=== PATIENT | female | born 1980 | race Caucasian/White ===

== ENCOUNTER 2018-01-16 13:20 | Emergency (ER) | payer MEDICARE, OTHER ==
[~2018-01-16] VITALS: Ht 152.4 cm; Wt 60.0 kg
[~2018-01-16 13:20] MED LIST: VALP250
[2018-01-16 13:21] VITALS: BP 153/102; PULSE 97; RESP 22; TEMP 98.4; O2SAT 98
[2018-01-16] MEDS ORDERED: VIST50CA PO (14:41)
[2018-01-16] MEDS ORDERED: SERO300T PO (14:41)
[2018-01-16] MEDS ORDERED: LITH300T PO (14:41)
[2018-01-16] MEDS ORDERED: RESP: ALBUTEROL 2.5 MG/IPRATROPIUM 0.5 MG NEB (SCH) INH ONE (15:15)
[2018-01-16] MEDS ORDERED: PRED20 PO (15:35)
[2018-01-16] MEDS ORDERED: VENTAER INH (15:35)
[2018-01-16] MEDS ORDERED: BACT800T5 PO (15:35)
--- NOTE | 2018-01-16 15:41 | PD ---
HPI Chief Complaint: Cold / Flu Symptoms Time Seen by Provider: 15:00 Travel History International Travel<30 days: No Contact w/Intl Traveler<30days: No Traveled to known affect area: No History of Present Illness HPI 37-year-old female presents emergency department with 1 week history of upper respiratory symptoms which have now settled in her chest. She states she has increased cough which is sometimes productive as well as shortness of breath and wheezing. Patient denies significant fever, sore throat, ear pain, or sinus congestion. She has been hoarse however. He denies nausea, vomiting, or heartburn. Patient is allergic to codeine. Patient is a smoker. 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) Medical other: Yes (PTSD, MENINGITIS) Seizures: Yes Tetanus Vaccination: Unknown Influenza Vaccination: No ?: Not LMP: 01/11/18 : 2 Para: 2 Tubal Ligation: Yes Past Surgical History Appendectomy: Yes Cholecystectomy: Yes Tonsillectomy: Yes Social History Alcohol Use: No Tobacco Use: Yes (1 PPD) Substance Use: No Allergies-Medications (Allergen,Severity, Reaction): Coded Allergies: codeine (Unverified Allergy, Intermediate, 01/16/18) Reported Meds & Prescriptions Reported Meds & Active Scripts Active Ventolin Hfa 18 GM Inh (Albuterol Sulfate) 90 Mcg/Act Aer 2 Puff INH Q4-6H PRN Prednisone 20 Mg Tab 20 Mg PO DAILY 7 Days Bactrim DS (Sulfamethoxazole-Trimethoprim) 800-160 Mg Tab 1 Tab PO BID Reported Seroquel (Quetiapine Fumarate) 300 Mg Tab 300 Mg PO HS Vistaril (Hydroxyzine Pamoate) 50 Mg Cap 50 Mg PO BID [place] Carbonate ER ([place] Carbonate) 300 Mg Tab 300 Mg PO BID Review of Systems Except as stated in HPI: all other systems reviewed are Neg General / Constitutional: No: Fever, Chills Eyes: No: Visual changes HENT: Positive: Rhinitis, Rhinorrhea, Congestion, No: Headaches, Vertigo, Lightheadedness, Sore Throat, Nosebleed, Neck Stiffness, Neck Pain, Dental Difficulties, Earache Cardiovascular: No: Chest Pain or Discomfort Respiratory: Positive: Cough, Shortness of Breath, Wheezing, No: Sneezing, Orthopnea, Hemoptysis, Night Sweats, Pleuritic Pain Gastrointestinal: No: Nausea, Vomiting, Diarrhea, Abdominal Pain Genitourinary: No: Dysuria Musculoskeletal: No: Pain Skin: No Rash Neurologic: No: Weakness Psychiatric: No: Depression Endocrine: No: Polydipsia Hematologic/Lymphatic: No: Easy Bruising Physical Exam Narrative GENERAL: Patient appears in no acute distress SKIN: Warm and dry. Normal color. Normal turgor. No rash HEAD: Atraumatic. Normocephalic. EYES: Pupils equal and round. No scleral icterus. No injection or drainage. ENT: No nasal bleeding or discharge. Mucous membranes pink and moist. Sinuses are nontender with palpation and percussion bilaterally. TMs are clear bilaterally. Posterior pharynx shows some mild erythema in the posterior pharynx but no significant swelling of the tonsils. There is no exudate or postnasal drip. Airway is patent. NECK: Trachea midline. Supple and nontender CARDIOVASCULAR: Regular rate and rhythm. RESPIRATORY: No accessory muscle use. Mild diffuse wheezes throughout r to auscultation. Breath sounds equal bilaterally. GASTROINTESTINAL: Abdomen soft, non-tender, nondistended. Hepatic and splenic margins not palpable. MUSCULOSKELETAL: Extremities without clubbing, cyanosis, or edema. No obvious deformities. NEUROLOGICAL: Awake and alert. No obvious cranial nerve deficits. Motor grossly within normal limits. Five out of 5 muscle strength in the arms and legs. Normal speech. PSYCHIATRIC: Appropriate mood and affect; insight and judgment normal. Data Data Last Documented VS Vital Signs Date Time Temp Pulse Resp B/P (MAP) Pulse Ox O2 Delivery O2 Flow Rate FiO2 01/16/18 13:21 98.4 97 22 153/102 (119) 98 Orders Orders Albuterol-Ipratropium Neb (Duoneb Neb) (01/16/18 15:15) [facility] Medical Decision Making Medical Screen Exam Complete: Yes Emergency Medical Condition: Yes Differential Diagnosis Upper respiratory infection. Sinusitis. Bronchitis. Wheezing. Narrative Course Patient is medically stable at time of exam. Chest x-ray is not felt warranted at this time. Patient is given a DuoNeb with improved symptoms. Patient was treated with Bactrim DS twice daily 10 days per Patient is given prednisone 20 mg daily for 7 days. Patient is given albuterol metered-dose inhaler 2 puffs every 4-6 hours as needed cough and wheeze. Patient is given a work note. Patient is encouraged to quit smoking as soon as possible. Diagnosis Primary Impression: Acute wheezy bronchitis Referrals: Primary Care Physician Patient Instructions: General Instructions, How to Stop Smoking (DC), Wheezing (ED) Departure Forms: Work Release Enter return to work date: Jan 18, 2018 Additional Instructions: Chest x-ray is not felt warranted at this time. Patient is given a DuoNeb with improved symptoms. Patient was treated with Bactrim DS twice daily 10 days per Patient is given prednisone 20 mg daily for 7 days. Patient is given albuterol metered-dose inhaler 2 puffs every 4-6 hours as needed cough and wheeze. Patient is given a work note. Patient is encouraged to quit smoking as soon as possible. Med/Other Pt SpecificInfo: Prescription(s) given Scripts Albuterol 18 GM Inh (Ventolin Hfa 18 GM Inh) 90 Mcg/Act Aer 2 PUFF INH Q4-6H Y for SHORTNESS OF BREATH, #1 INHALER 0 Refills Prov: Ulises Mackey MD 01/16/18 Prednisone (Prednisone) 20 Mg Tab 20 MG PO DAILY for 7 Days, #7 TAB 0 Refills Prov: Ulises Mackey MD 01/16/18 Sulfamethoxazole-Trimethoprim (Bactrim DS) 800-160 Mg Tab 1 TAB PO BID for Infection, #20 TAB 0 Refills Prov: Ulises Mackey MD 01/16/18 Disposition: 01 DISCHARGE HOME Condition: Stable Jong Kincaid Jan 16, 2018 15:40
== END 2018-01-16 15:52 | disposition home or self-care (01) ==
LOC: NEPA 13:20
DX: J20.9 Acute bronchitis, unspecified (principal); F43.10 Post-traumatic stress disorder, unspecified; R56.9 Unspecified convulsions; F17.200 Nicotine dependence, unspecified, uncomplicated; Z88.5 Allergy status to narcotic agent; Z79.899 Other long term (current) drug therapy; Z79.51 Long term (current) use of inhaled steroids
CPT/HCPCS: 94664; 99283

== ENCOUNTER 2018-03-18 08:42 | Emergency (ER) | payer SELFPAY ==
[~2018-03-18 08:42] MED LIST changes: +BACT800T5 PO; +LITH300T PO; +PRED20 PO; +SERO300T PO; -VALP250; +VENTAER INH; +VIST50CA PO
[2018-03-18 08:51] VITALS: BP 140/95; PULSE 77; RESP 16; TEMP 98.4; O2SAT 100
--- NOTE | 2018-03-18 09:19 | HHI.FPPN ---
Jong Kincaid Mar 18, 2018 09:18
[2018-03-18] MEDS ORDERED: IBUP-232 PO (09:22)
[2018-03-18] MEDS ORDERED: AMOX875T PO (09:22)
[2018-03-18] MEDS ORDERED: FLUT1SPR5 EACH NARE (09:22)
--- NOTE | 2018-03-18 09:29 | PD ---
HPI Chief Complaint: Oral / Dental Pain or Problem Time Seen by Provider: 09:11 Travel History International Travel<30 days: No Contact w/Intl Traveler<30days: No Traveled to known affect area: No History of Present Illness HPI 37-year-old female presents emergency department with upper respiratory symptoms over the past week as well as dental pain in the left lower jaw. Patient states she has had trouble with this tooth in the past. Is the second molar on the left lower jaw. Patient also has complaints of sinus congestion, headache, postnasal drip and sore throat. She denies chest congestion or wheezing. She has no nausea vomiting or diarrhea. Symptoms have been getting worse over the past week. She has tried [id number] meds without improvement. She recently quit smoking, but has no known seasonal allergies. She does not want any kind of narcotics or codeine. PFSH Past Medical History Medical History: Denies Significant Hx Diminished Hearing: Yes (L EAR SINCE INCIDENT) Immunizations Current: No Seizures: Yes Tetanus Vaccination: < 5 Years ?: Not : 2 Para: 2 Tubal Ligation: Yes Past Surgical History Appendectomy: Yes Cholecystectomy: Yes Tonsillectomy: Yes Social History Alcohol Use: No Tobacco Use: Yes (1 PPD) Substance Use: No Allergies-Medications (Allergen,Severity, Reaction): Coded Allergies: codeine (Unverified Allergy, Intermediate, 01/16/18) Uncoded Allergies: narcotics (Adverse Reaction, Severe, 03/18/18) recovering Reported Meds & Prescriptions Reported Meds & Active Scripts Active Ibuprofen 600 Mg Tab 600 Mg PO Q6H PRN Flonase Nasal [place] (Fluticasone Nasal [place]) 50 Mcg/Act [place] 100 Mcg EACH NARE BID Amoxicillin 875 Mg Tab 875 Mg PO BID 10 Days Prednisone 20 Mg Tab 20 Mg PO DAILY 7 Days Reported Seroquel (Quetiapine Fumarate) 300 Mg Tab 300 Mg PO HS Vistaril (Hydroxyzine Pamoate) 50 Mg Cap 50 Mg PO BID [place] Carbonate ER ([place] Carbonate) 300 Mg Tab 300 Mg PO BID Review of Systems Except as stated in HPI: all other systems reviewed are Neg General / Constitutional: No: Fever, Chills Eyes: No: Visual changes HENT: Positive: Headaches, Sore Throat, Rhinitis, Rhinorrhea, Dental Difficulties, Earache, No: Vertigo, Lightheadedness, Nosebleed, Neck Stiffness, Neck Pain, Masses, Gingival Bleeding, Ear Discharge Cardiovascular: No: Chest Pain or Discomfort Respiratory: Positive: Cough, No: Shortness of Breath Gastrointestinal: No: Abdominal Pain Genitourinary: No: Dysuria Musculoskeletal: No: Pain Skin: No Rash Neurologic: No: Weakness Psychiatric: No: Depression Endocrine: No: Polydipsia Hematologic/Lymphatic: No: Easy Bruising Physical Exam Narrative GENERAL: No obvious distress. SKIN: Warm and dry. Normal color. Normal turgor. No rash HEAD: Atraumatic. Normocephalic. Moderate sinus tenderness mainly in the maxillary sinus. EYES: Pupils equal and round. No scleral icterus. No injection or drainage. ENT: No nasal bleeding or discharge. Mucous membranes pink and moist. TMs are dull with no injection. Pharynx is cobblestoned with injection and postnasal drip noted. Patient has tenderness with palpation of the left lower second molar without significant abscess formation at this time. Airways patent. NECK: Trachea midline. Supple and nontender without significant lymphadenopathy. CARDIOVASCULAR: Regular rate and rhythm. RESPIRATORY: No accessory muscle use. Clear to auscultation. Breath sounds equal bilaterally. MUSCULOSKELETAL: Extremities without clubbing, cyanosis, or edema. No obvious deformities. NEUROLOGICAL: Awake and alert. No obvious cranial nerve deficits. Motor grossly within normal limits. Five out of 5 muscle strength in the arms and legs. Normal speech. PSYCHIATRIC: Appropriate mood and affect; insight and judgment normal. Data Data Last Documented VS Vital Signs Date Time Temp Pulse Resp B/P (MAP) Pulse Ox O2 Delivery O2 Flow Rate FiO2 03/18/18 08:51 98.4 77 16 140/95 (110) 100 MDM Medical Decision Making Medical Screen Exam Complete: Yes Emergency Medical Condition: Yes Differential Diagnosis Upper respiratory infection. Sinusitis. Dental pain. Narrative Course Patient is treated with amoxicillin 875 twice daily 10 days. Patient started on Flonase nasal spray 2 sprays each nostril daily. Patient is given ibuprofen 600 mg up to 4 times daily #40. Patient to follow-up with dentist as soon as possible. Work note was given for today. Patient can follow-up if symptoms worsen as needed Diagnosis Primary Impression: Acute pansinusitis, unspecified Qualified Codes: J01.40 - Acute pansinusitis, unspecified Additional Impression: Dental abscess Referrals: Dentist Patient Instructions: General Instructions Departure Forms: Work Release Enter return to work date: Mar 19, 2018 Additional Instructions: Patient is treated with amoxicillin 875 twice daily 10 days. Patient started on Flonase nasal spray 2 sprays each nostril daily. Patient is given ibuprofen 600 mg up to 4 times daily #40. Patient to follow-up with dentist as soon as possible. Work note was given for today. Patient can follow-up if symptoms worsen as needed Med/Other Pt SpecificInfo: Prescription(s) given Scripts Ibuprofen (Ibuprofen) 600 Mg Tab 600 MG PO Q6H Y for Pain/Inflammation, #40 TAB 0 Refills Prov: Willie Juan MD 03/18/18 Fluticasone Nasal [place] (Flonase Nasal [place]) 50 Mcg/Act [place] 100 MCG EACH NARE BID for Allergies, #1 BOTTLE 0 Refills Prov: Willie Juan MD 03/18/18 Amoxicillin (Amoxicillin) 875 Mg Tab 875 MG PO BID for Infection for 10 Days, #20 TAB 0 Refills Prov: Willie Juan MD 03/18/18 Disposition: 01 DISCHARGE HOME Condition: Stable Jong Kincaid Mar 18, 2018 09:29
[2018-03-19] MEDS ORDERED: MEDR4PAK PO (12:50)
== END 2018-03-18 09:42 | disposition home or self-care (01) ==
LOC: NEPK 08:42
DX: J01.40 Acute pansinusitis, unspecified (principal); K04.7 Periapical abscess without sinus; J02.9 Acute pharyngitis, unspecified; R51 Headache; F17.200 Nicotine dependence, unspecified, uncomplicated
CPT/HCPCS: 99283

== ENCOUNTER 2018-03-19 09:39 | Emergency (ER) | payer SELFPAY ==
[~2018-03-19] VITALS: Ht 152.4 cm; Wt 60.0 kg
[~2018-03-19 09:39] MED LIST changes: +AMOX875T PO; +FLUT1SPR5 EACH NARE; +IBUP-232 PO
[2018-03-19 09:41] VITALS: BP 106/74; PULSE 83; RESP 24; TEMP 98; O2SAT 98
[2018-03-19] MEDS ORDERED: SODIUM CHLORIDE 0.9% FLUSH 10 ML FLUSH IVF PRN (10:15)
[2018-03-19] MEDS ORDERED: methylPREDNISolone SOD SUCC 125 MG/2 ML VIAL IV PUSH ONE (10:15)
[2018-03-19] MEDS ORDERED: RESP: ALBUTEROL 2.5 MG/IPRATROPIUM 0.5 MG NEB (SCH) INH ONE (10:15)
[2018-03-19 10:16] VITALS: O2SAT 100
[2018-03-19] MEDS: RESP: ALBUTEROL 2.5 MG/3 ML NEB (SCH) INH ×2 (10:22→10:25)
--- NOTE | 2018-03-19 12:23 | PD ---
HPI Chief Complaint: Respiratory Symptoms Time Seen by Provider: 10:06 Travel History International Travel<30 days: No Contact w/Intl Traveler<30days: No Traveled to known affect area: No History of Present Illness HPI This is a 37-year-old female with a history of asthma and drug abuse in the past , presents today with shortness of breath and wheezing. Patient states that she believes she may have been exposed to mold or dust at her workplace. Patient denies any headache or dizziness. There are no other complaints at time of examination. Patient states that she was recently seen for a tooth and sinus infection and prescribed amoxicillin. She states that they also prescribed a albuterol inhaler however she did not purchase it because it costs $60 and she did not want to spend that money at this time. 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) Psychiatric: Yes (PTSD) Respiratory: Yes Immunizations Current: No Seizures: Yes Tetanus Vaccination: > 5 Years Influenza Vaccination: No ?: Not LMP: LAST WEEK : 2 Para: 2 Tubal Ligation: Yes Past Surgical History Appendectomy: Yes Cholecystectomy: Yes Tonsillectomy: Yes (T & A) Social History Alcohol Use: No Tobacco Use: Yes (E-CIG) Substance Use: No (recovery CRACK USER) Allergies-Medications (Allergen,Severity, Reaction): Coded Allergies: codeine (Unverified Allergy, Intermediate, 03/19/18) Uncoded Allergies: narcotics (Adverse Reaction, Severe, 03/18/18) recovering Reported Meds & Prescriptions Reported Meds & Active Scripts Active Medrol Dosepak (Methylprednisolone) 4 Mg Dspk 4 Mg PO DIRECTED Per Pharmacist direction Ibuprofen 600 Mg Tab 600 Mg PO Q6H PRN Flonase Nasal [place] (Fluticasone Nasal [place]) 50 Mcg/Act [place] 100 Mcg EACH NARE BID Amoxicillin 875 Mg Tab 875 Mg PO BID 10 Days Reported Seroquel (Quetiapine Fumarate) 300 Mg Tab 300 Mg PO HS Vistaril (Hydroxyzine Pamoate) 50 Mg Cap 50 Mg PO BID [place] Carbonate ER ([place] Carbonate) 300 Mg Tab 300 Mg PO BID Review of Systems Except as stated in HPI: all other systems reviewed are Neg General / Constitutional: No: Fever, Chills HENT: No: Headaches, Lightheadedness Cardiovascular: No: Chest Pain or Discomfort, Palpitations Respiratory: Positive: Shortness of Breath, No: Cough, Wheezing Gastrointestinal: No: Nausea, Vomiting, Abdominal Pain Genitourinary: No: Urgency Musculoskeletal: No: Weakness, Pain Neurologic: No: Weakness, Dizziness, Headache Psychiatric: No: Anxiety, Disorder of Thought Physical Exam Narrative GENERAL: Well-developed well-nourished female in no acute respiratory distress. SKIN: Focused skin assessment warm/dry. HEAD: Atraumatic. Normocephalic. EYES: Pupils equal and round. No scleral icterus. No injection or drainage. ENT: No nasal bleeding or discharge. Mucous membranes pink and moist. NECK: Trachea midline. Supple. CARDIOVASCULAR: Regular rate and rhythm. No murmur appreciated. RESPIRATORY: Bilateral upper and lower airway expiratory wheezes. No rales appreciated. GASTROINTESTINAL: Abdomen soft, non-tender, nondistended. Hepatic and splenic margins not palpable. MUSCULOSKELETAL: No obvious deformities. No clubbing. No cyanosis. No edema. NEUROLOGICAL: Awake and alert. No obvious cranial nerve deficits. Motor grossly within normal limits. Normal speech. PSYCHIATRIC: Appropriate mood and affect; insight and judgment normal. Data Data Last Documented VS Vital Signs Date Time Temp Pulse Resp B/P (MAP) Pulse Ox O2 Delivery O2 Flow Rate FiO2 03/19/18 10:16 100 Room Air 03/19/18 09:41 98.0 83 24 106/74 (85) Orders Orders Iv Access Insert/Monitor (03/19/18 10:06) Ecg Monitoring (03/19/18 10:06) Oximetry (03/19/18 10:06) Oxygen Administration (03/19/18 10:06) Sodium Chloride 0.9% Flush (Ns Flush) (03/19/18 10:15) Methylprednisolone So Succ Inj (Solumedr (03/19/18 10:15) Albuterol-Ipratropium Neb (Duoneb Neb) (03/19/18 10:15) Albuterol Neb (Albuterol Neb) (03/19/18 10:15) MDM Medical Decision Making Medical Screen Exam Complete: Yes Emergency Medical Condition: Yes Differential Diagnosis Reactive airway disease versus asthma exacerbation versus medication reaction Narrative Course 37-year-old female presents today with complaints of shortness of breath and wheezing. Patient states that she works in an environment that has a lot of dust and possible mold. Patient was seen here 2 days ago for sinus infection. She was given a prescription for amoxicillin. She is also given a prescription for a albuterol inhaler. She states she did not fill the inhaler because it cost too much. She has been given 3 nebulizer treatments first with Atrovent. She is also been given 125 mg of Solu-Medrol. She will be discharged with a Medrol Dosepak. She is instructed to follow-up if she develops any worsening symptoms. She also be given the [facility] information for possible outpatient follow-up. Diagnosis Primary Impression: Reactive airway disease Additional Instructions: Return if feeling worse. Med/Other Pt SpecificInfo: Prescription(s) given Scripts Methylprednisolone Dosepak (Medrol Dosepak) 4 Mg Dspk 4 MG PO DIRECTED, #1 DSPK 0 Refills Per Pharmacist direction Prov: Terry Lagos MD 03/19/18 Disposition: 01 DISCHARGE HOME Condition: Stable Terry Lagos MD Mar 19, 2018 12:23
[2018-03-19] MEDS ORDERED: MEDR4PAK PO (12:50)
[2018-03-19 13:08] VITALS: BP 130/78
== END 2018-03-19 13:09 | disposition home or self-care (01) ==
LOC: NEPC 09:39
DX: J45.909 Unspecified asthma, uncomplicated (principal); F31.9 Bipolar disorder, unspecified; F43.10 Post-traumatic stress disorder, unspecified; F17.290 Nicotine dependence, other tobacco product, uncomplicated
CPT/HCPCS: 94640; 94664; 96374; 99284; J2930; J7613

== ENCOUNTER 2018-05-03 07:45 | Emergency (ER) | payer BC ==
[~2018-05-03] VITALS: Ht 149.9 cm; Wt 52.0 kg
[2018-05-03 07:45] VITALS: BP 115/63; PULSE 81; RESP 20; TEMP 98.1; O2SAT 100
[~2018-05-03 07:45] MED LIST changes: -BACT800T5 PO; +MEDR4PAK PO; -PRED20 PO; -VENTAER INH
[2018-05-03] MEDS ORDERED: ALBUAER3 INH (08:10)
[2018-05-03] MEDS ORDERED: predniSONE 20 MG TAB PO ONE (08:30)
[2018-05-03] MEDS ORDERED: RESP: ALBUTEROL 2.5 MG/IPRATROPIUM 0.5 MG NEB (SCH) INH ONE (08:30)
[2018-05-03] MEDS ORDERED: VENTAER INH (08:58)
[2018-05-03] MEDS ORDERED: PRED-503 PO (08:58)
[2018-05-03] MEDS ORDERED: AZIT500T2 PO (08:58)
--- NOTE | 2018-05-03 08:58 | PD ---
HPI Chief Complaint: Respiratory Symptoms Time Seen by Provider: 08:13 Travel History International Travel<30 days: No Contact w/Intl Traveler<30days: No Traveled to known affect area: No History of Present Illness HPI 37-year-old female presents to the emergency department, with history of asthma , complaining of nasal congestion, cough, sore throat, chest tightness 2 days. Had an asthma attack last night and used her albuterol inhaler with minimal relief of symptoms. Reports fever of 101.0 yesterday. Denies vomiting. Denies chest pain. Reports wheezing. Others at work are sick with similar symptoms. Has been taking loratadine for symptom management. Symptoms are mild to moderate in severity. No known aggravating or relieving factors. Needs a refill on her albuterol inhaler. No primary care provider. History of asthma. Allergies to codeine and narcotics. Has no other medical complaints. No other modifying factors or associated signs and symptoms. 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) Psychiatric: Yes (PTSD) Respiratory: Yes Immunizations Current: No Seizures: Yes ?: Not LMP: 04/25/18 : 2 Para: 2 Tubal Ligation: Yes Past Surgical History Appendectomy: Yes Cholecystectomy: Yes Tonsillectomy: Yes (T & A) Social History Alcohol Use: No Tobacco Use: Yes (E-CIG) Substance Use: No (recovery CRACK USER) Allergies-Medications (Allergen,Severity, Reaction): Coded Allergies: codeine (Unverified Allergy, Intermediate, 05/03/18) Uncoded Allergies: narcotics (Adverse Reaction, Intermediate, 05/03/18) recovering Reported Meds & Prescriptions Reported Meds & Active Scripts Active Deltasone (Prednisone) 20 Mg Tab 40 Mg PO DAILY 4 Days start 05/04/2018 Ventolin Hfa 18 GM Inh (Albuterol Sulfate) 90 Mcg/Act Aer 2 Puff INH Q4-6H PRN Azithromycin 500 Mg Tab 500 Mg PO DAILY Reported Proair Hfa 8.5 GM Inh (Albuterol Sulfate) 90 Mcg/Act Aer 1 Puff INH Q4H PRN 108 mcg/actuation Seroquel (Quetiapine Fumarate) 300 Mg Tab 300 Mg PO HS Vistaril (Hydroxyzine Pamoate) 50 Mg Cap 50 Mg PO BID [place] Carbonate ER ([place] Carbonate) 300 Mg Tab 300 Mg PO BID Review of Systems Except as stated in HPI: all other systems reviewed are Neg Physical Exam Narrative GENERAL: Well-nourished, well-developed femur patient, in no acute distress; afebrile, nontoxic-appearing SKIN: Warm and dry. HEAD: Atraumatic. Normocephalic. EYES: Pupils equal and round. No scleral icterus. No injection or drainage. ENT: Mucosa pink and moist. No erythema or exudates. No uvular edema. No uvular , palatal, or tonsillar deviation. Airway patent. Nares without nasal blood, purulent drainage or septal hematoma. EARS: Bilateral pinnae and external canals appear within normal limits. Bilateral tympanic membranes without erythema, dullness or perforation. NECK: Trachea midline. No lymphadenopathy. CARDIOVASCULAR: Regular rate and rhythm. No murmur appreciated. RESPIRATORY: No accessory muscle use. Lungs with Wheezing throughout to auscultation. Breath sounds equal bilaterally. No retractions or tachypnea. No Audible wheezing noted. GASTROINTESTINAL: Abdomen soft, non-tender, nondistended. Hepatic and splenic margins not palpable. Bowel sounds are active 4 quadrants. MUSCULOSKELETAL: No obvious deformities. No clubbing. No cyanosis. No edema. NEUROLOGICAL: Awake and alert. Oriented 3. No obvious cranial nerve deficits. Motor grossly within normal limits. Normal speech. Moves all extremities. 5/5 strength to all extremities. PSYCHIATRIC: Appropriate mood and affect; insight and judgment normal. Data Data Last Documented VS Vital Signs Date Time Temp Pulse Resp B/P (MAP) Pulse Ox O2 Delivery O2 Flow Rate FiO2 05/03/18 07:45 98.1 81 20 115/63 (80) 100 Orders Orders Prednisone (Deltasone) (05/03/18 08:30) Albuterol-Ipratropium Neb (Duoneb Neb) (05/03/18 08:30) Ed Discharge Order (05/03/18 08:58) [facility] Medical Decision Making Medical Screen Exam Complete: Yes Emergency Medical Condition: Yes Medical Record Reviewed: Yes Differential Diagnosis Upper respiratory infection, asthma exacerbation, viral illness, pneumonia Narrative Course 37-year-old female with upper respiratory infection and asthma exacerbation. Patient is afebrile and nontoxic-appearing. Reports fever of 101.0. DuoNeb 1 , Deltasone ordered. Azithromycin, Ventolin inhaler, Deltasone prescribed for home. Instructed patient to follow up with primary care provider. Patient verbalizes understanding and agreement with treatment plan. Patient is medically cleared and stable for discharge. Discussed reasons to return to the emergency department. Patient agrees with treatment plan. The patients vital signs are stable and the patient is stable for outpatient follow-up and treatment. Patient discharged home, stable and in no acute distress. Diagnosis Primary Impression: Asthma exacerbation Qualified Codes: J45.901 - Unspecified asthma with (acute) exacerbation Additional Impression: Upper respiratory infection Qualified Codes: J06.9 - Acute upper respiratory infection, unspecified Referrals: [facility] Primary Care Physician Patient Instructions: Asthma (ED), General Instructions, Upper Respiratory Infection (ED) Departure Forms: Tests/Procedures, Work Release Enter return to work date: May 05, 2018 Additional Instructions: Use Albuterol inhaler as prescribed Take oral steroids as prescribed and complete full course Sugn-[id number] decongestants or antihistamines as directed and as needed for symptom management Drink plenty of fluids to prevent dehydration Use hot air humidifier to decrease cough exacerbation Turn off ceiling fans and sleep with head of bed elevated Avoid triggers such as second hand smoke, dust, known allergens Follow-up with your primary care provider Return to the emergency department immediately with worsening of symptoms Med/Other Pt SpecificInfo: Prescription(s) given Scripts Prednisone (Deltasone) 20 Mg Tab 40 MG PO DAILY for 4 Days, #8 TAB 0 Refills start 05/04/2018 Prov: Mary BraggP 05/03/18 Albuterol 18 GM Inh (Ventolin Hfa 18 GM Inh) 90 Mcg/Act Aer 2 PUFF INH Q4-6H Y for SOB/WHEEZING, #1 INHALER 0 Refills Prov: Mary BraggP 05/03/18 Azithromycin (Azithromycin) 500 Mg Tab 500 MG PO DAILY for Infection, #5 TAB 0 Refills Prov: Mary Bragg 05/03/18 Disposition: 01 DISCHARGE HOME Condition: Stable Mary Bragg May 03, 2018 08:58
== END 2018-05-03 09:33 | disposition home or self-care (01) ==
LOC: NEPD 07:45
DX: J45.901 Unspecified asthma with (acute) exacerbation (principal); J06.9 Acute upper respiratory infection, unspecified; F31.9 Bipolar disorder, unspecified; Z72.0 Tobacco use
CPT/HCPCS: 94664; 99283; J7512